=== PATIENT | male | born 1990 | race Caucasian/White ===

== ENCOUNTER 2024-12-13 10:28 | Emergency (ER) | payer SELFPAY ==
[2024-12-13 10:37] VITALS: BP 148/82; PULSE 126; RESP 18; TEMP 37.2; O2SAT 100
--- OUTSIDE RECORDS SUMMARY | 2024-12-13 10:52 | XMS_ITS | Clinical Summary ---
Author Organization [facility] Address 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
[2024-12-13 11:03] VITALS: PULSE 80
--- NOTE | 2024-12-13 11:16 | ED.ABDPAIN ---
HPI - Abdominal Pain General Chief Complaint: Abdominal Pain Stated Complaint: Stomach Pain Time Seen by Provider: 12/13/24 10:43 Source: patient and RN notes reviewed Mode of arrival: ambulatory Limitations: no limitations History of Present Illness HPI narrative: Patient presents today with a 2 week history of epigastric pain that has been slowly worsening since onset. He also reports some nausea today. Denies fever, vomiting, urinary symptoms, diarrhea. Currently rates his pain 3/10. He has tried some Pepcid without much improvement. He has also modified his diet to bland foods over the last several days. Related Data Allergies Allergy/AdvReac Type Severity Reaction Status Date / Time No Known Allergies Allergy Verified 12/13/24 10:38 PMFSH Comments At time of signature, I have reviewed and agree with nursing past medical, surgical, social and family history unless otherwise noted. Please see nursing chart for further information. There is no relevant family history pertinent to the presenting complaint Exam Narrative: GENERAL: Well-appearing, well-nourished, and in no acute distress. HEAD: Normocephalic, atraumatic. EYES: EOMI. No redness or drainage. Conjunctivae normal. ENT: Mucous membranes pink and moist. NECK: Normal AROM. CHEST: No respiratory distress. Clear to auscultation. HEART: Regular rate and rhythm. No murmur appreciated. ABDOMEN: Soft, nontender, nondistended, normal active bowel sounds. EXTREMITIES: Normal range of motion. No edema. SKIN: Warm, dry, no rash. Capillary refill normal. Normal skin turgor. NEURO: No focal deficits. Alert and oriented x3. Gait steady. PSYCH: Normal affect. No signs of depression or anxiety. Course Course Level of Care: Express Care Visit Vital Signs Vital signs: Vital Signs Temperature 99.0 F 12/13/24 10:37 Pulse Rate 126 H 12/13/24 10:37 Respiratory Rate 18 12/13/24 10:37 Blood Pressure 148/82 H 12/13/24 10:37 Pulse Oximetry 100 12/13/24 10:37 Oxygen Delivery Room Air 12/13/24 10:37 Temperature 99.0 F 12/13/24 10:37 Pulse Rate 80 12/13/24 11:03 Respiratory Rate 18 12/13/24 10:37 Blood Pressure 148/82 H 12/13/24 10:37 Pulse Oximetry 100 12/13/24 10:37 Oxygen Delivery Room Air 12/13/24 10:37 Reviewed MDM - Abdominal Pain MDM Narrative Medical decision making narrative: Patient presents today with a 2 week history of epigastric pain that has been slowly worsening since onset. He also reports some nausea today. Denies fever, vomiting, urinary symptoms, diarrhea. Currently rates his pain 3/10. He has tried some Pepcid without much improvement. He has also modified his diet to bland foods over the last several days. Patient's exam is normal without any abdominal tenderness, rigidity, bloating, or guarding. His vital signs are stable. Patient declines ER transfer for further evaluation. VSS. Recommend adding omeprazole to his Pepcid and follow up with PCP if symptoms are not improving. Patient agrees with plan. ED precautions and anticipatory guidance given. Differential Diagnosis Differential diagnosis: Likely other (gastritis, GERD, cholecystitis) Critical Care Time Critical Care Time Critical Care Time: No Discharge Plan Discharge Clinical Impression: Acute upper abdominal pain Patient Disposition: Home Condition: Stable Instructions: Diet for Stomach Ulcers and Gastritis (ED), Abdominal Pain (ED), Gastroesophageal Reflux in Infants (ED) Additional Instructions: You have declined transfer to the ER for further evaluation of your abdominal pain. It may be due to irritation in the lining of your stomach or acid reflux. Please start omeprazole twice daily. Continue with your bland diet. Sit up at least 2 hours after dinner before going to bed. As discussed, please go to the ER immediately if symptoms worsen, you develop a fever, blood or mucus in your stool Patient Language: Spanish Prescriptions: New omeprazole 20 mg capsule,delayed release(DR/EC) 20 mg PO BID Qty: 20 0RF Follow-up/Referrals: UNKNOWN,DOCTOR [Primary Care Provider] Time of Disposition: 11:00
== END 2024-12-13 11:03 | disposition home or self-care (01) ==
PROVIDERS: Emergency Provider Nurse Practitioner
DX: R10.10 Upper abdominal pain, unspecified (principal)
CPT/HCPCS: 99213; G0463